=== PATIENT | female | born 1970 | race Two or more races ===

== ENCOUNTER → 2018-02-12 | Outpatient (REF) | payer OTHER | LOC: M SFHCLERA 20:13 | DX: N30.01 Acute cystitis with hematuria (principal) | CPT/HCPCS: 87088; 87186 ==

== ENCOUNTER → 2018-04-12 | Outpatient (CLI) | payer OTHER ==
[2018-04-12 19:20] LABS: BASO % 0.3 % (0.0-1.0); EOS % 0.1 % (0.0-3.0); HEMATOCRIT 37.4 % (36.0-47.0); HEMOGLOBIN 12.5 g/dl (12.0-15.5); IMMATURE GRANULOCYTE % 0.9 % (0-3.0); LYMPH # 0.8 10^3/uL (1.5-4.5); LYMPH % 6.8 % (24.0-44.0); MEAN CORPUSCULAR HEMOGLOBIN 33.6 pg (27.0-33.0); MEAN CORPUSCULAR HGB CONC 33.4 g/dl (32.0-36.5); MEAN CORPUSCULAR VOLUME 100.5 fl (80.0-96.0); MONO # 0.5 10^3/uL (0.0-0.8); MONO % 4.4 % (0.0-5.0); NEUTROPHILS # 9.7 10^3/uL (1.8-7.7); NEUTROPHILS % 87.5 % (36.0-66.0); PLATELET COUNT, AUTOMATED 368 10^3/uL (150-450); RED BLOOD COUNT 3.72 10^6/uL (4.00-5.40); RED CELL DISTRIBUTION WIDTH 14.6 % (11.5-14.5); WHITE BLOOD COUNT 11.1 10^3/uL (4.0-10.0)
[2018-04-18 00:12] LABS: Lyme Disease IgG/IgM Antibodie 0.96 ISR (0.00-0.90); Lyme Disease IgM Ab Quantitati <0.80 index (0.00-0.79)
[2018-04-18 12:01] LABS: Lyme Disease IgG Ab 18 kDa Ban Absent (.); Lyme Disease IgG Ab 23 kDa Ban Absent (.); Lyme Disease IgG Ab 28 kDa Ban Absent (.); Lyme Disease IgG Ab 30 kDa Ban Absent (.); Lyme Disease IgG Ab 39 kDa Ban Absent (.); Lyme Disease IgG Ab 41 kDa Ban Absent (.); Lyme Disease IgG Ab 45 kDa Ban Absent (.); Lyme Disease IgG Ab 58 kDa Ban Absent (.); Lyme Disease IgG Ab 66 kDa Ban Absent (.); Lyme Disease IgG Ab 93 kDa Ban Absent (.); Lyme Disease IgG West Blot Int Negative (.); Lyme Disease IgM Ab 23 kDa Ban Absent (.); Lyme Disease IgM Ab 39 kDa Ban Absent (.); Lyme Disease IgM Ab 41 kDa Ban Present (.); Lyme Disease IgM West Blot Int Negative (.)
== END ==
LOC: M SMT 14:14
DX: R50.9 Fever, unspecified (principal)
CPT/HCPCS: 85025

== ENCOUNTER 2018-05-31 14:34 | Observation (INO) | payer OTHER ==
[2018-05-31] MEDS: NICOTINE 14 MG/24 HR TRANSDERMAL TD ×2 (09:00)
[2018-05-31 15:19] LABS: BASO % 0.2 % (0.0-1.0); EOS # 0.1 10^3/uL (0.0-0.50); EOS % 1.1 % (0.0-3.0); HEMATOCRIT 40.9 % (36.0-47.0); HEMOGLOBIN 13.9 g/dl (12.0-15.5); IMMATURE GRANULOCYTE % 0.6 % (0-3.0); LYMPH # 1.1 10^3/uL (1.5-4.5); LYMPH % 19.7 % (24.0-44.0); MEAN CORPUSCULAR HEMOGLOBIN 34.2 pg (27.0-33.0); MEAN CORPUSCULAR VOLUME 100.5 fl (80.0-96.0); MONO # 0.3 10^3/uL (0.0-0.8); MONO % 6.1 % (0.0-5.0); NEUTROPHILS # 3.9 10^3/uL (1.8-7.7); NEUTROPHILS % 72.3 % (36.0-66.0); PLATELET COUNT, AUTOMATED 234 10^3/uL (150-450); RED BLOOD COUNT 4.07 10^6/uL (4.00-5.40); RED CELL DISTRIBUTION WIDTH 13.4 % (11.5-14.5); WHITE BLOOD COUNT 5.4 10^3/uL (4.0-10.0)
[2018-05-31 15:46] LABS: ALBUMIN 3.6 GM/DL (3.2-5.2); ALBUMIN/GLOBULIN RATIO 0.97 (1.00-1.93); ALKALINE PHOSPHATASE 54 U/L (45-117); ALT/SGPT 17 U/L (12-78); ANION GAP 7 MEQ/L (8-16); AST/SGOT 10 U/L (7-37); BILIRUBIN,DIRECT 0.1 MG/DL (0.0-0.2); BILIRUBIN,TOTAL 0.3 MG/DL (0.2-1.0); BLOOD UREA NITROGEN 8 MG/DL (7-18); CALCIUM LEVEL 8.1 MG/DL (8.5-10.1); CARBON DIOXIDE LEVEL 24 MEQ/L (21-32); CHLORIDE LEVEL 108 MEQ/L (98-107); CREATININE FOR GFR 0.77 MG/DL (0.55-1.30); GLOMERULAR FILTRATION RATE > 60.0 (>58); GLUCOSE, FASTING 86 MG/DL (70-100); PHOSPHORUS LEVEL 1.8 MG/DL (2.5-4.9); POTASSIUM SERUM 4.1 MEQ/L (3.5-5.1); SODIUM LEVEL 139 MEQ/L (136-145); TOTAL PROTEIN 7.3 GM/DL (6.4-8.2)
[2018-05-31 15:48] LABS: CONTROL LINE HCG INT CTR LINE PRESENT; HCG, SERUM QUALITATIVE NEGATIVE (NEGATIVE)
[2018-05-31 15:52] LABS: AMPHETAMINES LEVEL URINE NEGATIVE (NEGATIVE); BARBITURATES URINE NEGATIVE (NEGATIVE); BENZODIAZEPINES URINE NEGATIVE (NEGATIVE); CANNABINOIDS URINE NEGATIVE (NEGATIVE); COCAINE METABOLITE URINE NEGATIVE (NEGATIVE); KETONE, URINE AUTO RFX NEGATIVE (NEGATIVE); LEUKOCYTE ESTERASE UR AUTO RFX NEGATIVE (NEGATIVE); METHADONE URINE NEGATIVE (NEGATIVE); NITRITE, URINE AUTO RFX NEGATIVE (NEGATIVE); OPIATES URINE NEGATIVE (NEGATIVE); PHENCYCLIDINE URINE NEGATIVE (NEGATIVE); RBC, URINE AUTO RFX 1 /HPF (0-3); SPECIFIC GRAVITY UR AUTO RFX 1.008 (1.002-1.035); SQUAM EPITHELIAL CELL UR AURFX 0 /HPF (0-6); WBC, URINE AUTO RFX 1 /HPF (0-3)
[2018-05-31 16:01] LABS: CK-MB VALUE MASS 1.2 NG/ML (<3.6); CPK CREATINE PHOSPHOKINASE 91 U/L (26-192)
[2018-05-31 16:02] LABS: MB/CK RELATIVE INDEX 1.31 (< OR =4); TROPONIN I < 0.02 NG/ML (< 0.10)
[2018-05-31] MEDS: LORazepam 2 MG/ML VIAL (J2060) IV ×2 (16:05)
[2018-05-31] MEDS: LABETALOL HCL 100 MG/20 ML VIAL IV ×2 (16:32)
[2018-05-31] MEDS: NICOTINE 21MG/24HR 1 EA TRANSDERMAL TD ×2 (16:33)
[2018-05-31 18:24] LABS: ETHYL ALCOHOL (ETHANOL) 0.006 % (0.000-0.010)
[2018-05-31] MEDS ORDERED: ALBUTEROL 90 MCG/ACT 8GM HFA INHALER INH ×2 (18:30)
[2018-05-31] MEDS ORDERED: LORazepam 2 MG/ML VIAL (J2060) IV ×2 (18:30)
[2018-05-31 18:45] LABS: FOLATE 5.3 NG/ML (>5.4)
[2018-05-31 18:45] LABS: VITAMIN B12 LEVEL 255 PG/ML (247-911)
[2018-05-31] MEDS: SODIUM PHOSPHATE INJ 30 MMOL in D5W 500 ML IV (18:51)
[2018-05-31] MEDS: THIAMINE HCL 200 MG/2 ML VIAL (J3411) IM ×2 (18:52)
[2018-05-31] MEDS: hydrALAZINE INJ 20 MG/ML VIAL IV ×2 (18:55)
[2018-05-31] MEDS: **hydrALAZINE HCL** 25 MG TAB PO ×2 (19:14)
[2018-05-31] MEDS: SYMBICORT 160/4.5MCG INHALER 6GM INH ×2 (20:20)
[2018-05-31] MEDS ORDERED: LORazepam 2 MG TAB PO ×2 (20:45)
[2018-05-31] MEDS: cloNIDine 0.1 MG TAB PO ×2 (21:00)
[2018-05-31] MEDS ORDERED: cloNIDine 0.2 MG TAB PO ×2 (21:00)
[2018-05-31] MEDS: THIAMINE 100 MG TAB PO ×2 (21:58)
[2018-06-01 07:25] LABS: HEMATOCRIT 44.4 % (36.0-47.0); HEMOGLOBIN 15.1 g/dl (12.0-15.5); MEAN CORPUSCULAR HEMOGLOBIN 34.7 pg (27.0-33.0); MEAN CORPUSCULAR VOLUME 102.1 fl (80.0-96.0); PLATELET COUNT, AUTOMATED 254 10^3/uL (150-450); RED BLOOD COUNT 4.35 10^6/uL (4.00-5.40); RED CELL DISTRIBUTION WIDTH 13.4 % (11.5-14.5); WHITE BLOOD COUNT 6.9 10^3/uL (4.0-10.0)
[2018-06-01 07:30] LABS: ANION GAP 7 MEQ/L (8-16); BLOOD UREA NITROGEN 10 MG/DL (7-18); CALCIUM LEVEL 8.5 MG/DL (8.5-10.1); CARBON DIOXIDE LEVEL 28 MEQ/L (21-32); CHLORIDE LEVEL 106 MEQ/L (98-107); CREATININE FOR GFR 0.81 MG/DL (0.55-1.30); GLOMERULAR FILTRATION RATE > 60.0 (>58); GLUCOSE, FASTING 80 MG/DL (70-100); PHOSPHORUS LEVEL 3.9 MG/DL (2.5-4.9); POTASSIUM SERUM 3.2 MEQ/L (3.5-5.1); SODIUM LEVEL 141 MEQ/L (136-145)
[2018-06-01] MEDS: SYMBICORT 160/4.5MCG INHALER 6GM INH ×2 (07:59)
[2018-06-01] MEDS ORDERED: THIAMINE HCL 200 MG/2 ML VIAL (J3411) IV ×2 (09:00)
[2018-06-01] MEDS: MULTIVITAMINS/MINERALS THERAP 1 TAB PO ×2 (10:15)
[2018-06-01] MEDS: FOLIC ACID 1 MG TAB PO ×2 (10:15)
[2018-06-01] MEDS: CETIRIZINE (ZyrTEC) 10 MG TAB PO ×2 (10:15)
[2018-06-01] MEDS: NICOTINE 14 MG/24 HR TRANSDERMAL TD ×2 (10:15)
[2018-06-01] MEDS: THIAMINE 100 MG TAB PO ×2 (10:15)
[2018-06-01] MEDS: PANTOPRAZOLE 40MG TAB (PROTONIX) PO ×2 (10:15)
[2018-06-01] MEDS: ENOXAPARIN 40 MG/0.4 ML SYRINGE (J1650) SC ×2 (10:16)
[2018-06-01] MEDS: cloNIDine 0.1 MG TAB PO ×4 (10:19→16:52)
[2018-06-03 00:07] LABS: HOMOCYST(E)INE SERUM 30.1 umol/L (0.0-15.0)
[2018-06-04 00:06] LABS: Methylmalonic Acid 485 nmol/L (0-378)
[2018-06-06 00:07] LABS: VITAMIN B1 LEVEL WHOLE BLOOD 356.4 nmol/L (66.5-200.0)
== END 2018-06-01 18:33 | disposition home or self-care (01) ==
LOC: M ED 14:34 → M ED INP 17:33 → M MSPAV 19:47
DX: R56.9 Unspecified convulsions (principal); I16.0 Hypertensive urgency; J45.909 Unspecified asthma, uncomplicated; M26.609 Unspecified temporomandibular joint disorder, unspecified side; F17.210 Nicotine dependence, cigarettes, uncomplicated; K21.9 Gastro-esophageal reflux disease without esophagitis; F10.10 Alcohol abuse, uncomplicated; D75.89 Other specified diseases of blood and blood-forming organs; E83.31 Familial hypophosphatemia; Z79.899 Other long term (current) drug therapy; F41.9 Anxiety disorder, unspecified; Z79.52 Long term (current) use of systemic steroids
CPT/HCPCS: J2060

== ENCOUNTER → 2018-06-25 | Outpatient (CLI) | payer OTHER ==
[2018-06-25 18:22] LABS: FOLATE > 24.0 NG/ML
== END ==
LOC: M SMT 13:28
DX: D64.9 Anemia, unspecified (principal)
CPT/HCPCS: 82746

== ENCOUNTER → 2019-01-15 | Outpatient (CLI) | payer BC ==
[~2019-01-15] MED LIST: BREO1INH3 INH; BUPR15TASR PO; CETI10TA PO; FOLI1TAB11 PO; LORA0.5T11 PO; LORA1TAB12 PO; NICO14PA TD; PANT40TA3 PO; PROAAER10 INH; VITMTA PO
[2019-01-15 08:02] LABS: BASO % 0.6 % (0.0-1.0); EOS % 1.1 % (0.0-3.0); HEMATOCRIT 38.8 % (36.0-47.0); HEMOGLOBIN 13.3 g/dl (12.0-15.5); LYMPH # 1.3 10^3/uL (1.5-4.5); LYMPH % 34.6 % (24.0-44.0); MEAN CORPUSCULAR HGB CONC 34.3 g/dl (32.0-36.5); MEAN CORPUSCULAR VOLUME 99.2 fl (80.0-96.0); MONO # 0.5 10^3/uL (0.0-0.8); MONO % 13.9 % (0.0-5.0); NEUTROPHILS # 1.8 10^3/uL (1.8-7.7); NEUTROPHILS % 49.5 % (36.0-66.0); PLATELET COUNT, AUTOMATED 231 10^3/uL (150-450); RED BLOOD COUNT 3.91 10^6/uL (4.00-5.40); WHITE BLOOD COUNT 3.6 10^3/uL (4.0-10.0)
[2019-01-15 08:20] LABS: ALBUMIN 4.1 GM/DL (3.2-5.2); ALT/SGPT 23 U/L (12-78); BILIRUBIN,TOTAL 0.5 MG/DL (0.2-1.0); BLOOD UREA NITROGEN 7 MG/DL (7-18); CALCIUM LEVEL 9.1 MG/DL (8.5-10.1); CARBON DIOXIDE LEVEL 27 MEQ/L (21-32); CHLORIDE LEVEL 104 MEQ/L (98-107); CHOLESTEROL LEVEL 168 MG/DL (<200); CREATININE FOR GFR 0.76 MG/DL (0.55-1.30); GLOMERULAR FILTRATION RATE > 60.0 (>58); GLUCOSE, FASTING 87 MG/DL (70-100); HDL CHOLESTEROL 84 MG/DL (>40); LDL CHOLESTEROL 41 MG/DL (<100); NON-HDL-C 84 MG/DL; POTASSIUM SERUM 3.7 MEQ/L (3.5-5.1); SODIUM LEVEL 139 MEQ/L (136-145); TOTAL PROTEIN 7.1 GM/DL (6.4-8.2); TRIGLYCERIDES LEVEL 213 MG/DL (<150)
== END ==
LOC: M LAB 07:17
PROVIDERS: ATTEND Physician Assistant
DX: I10 Essential (primary) hypertension (principal)